=== PATIENT | male | born 2000 | race Caucasian/White ===

== ENCOUNTER 2021-07-25 16:27 | Emergency (ER) | payer OTHER ==
[~2021-07-25] VITALS: Ht 188 cm; Wt 81.6 kg
[2021-07-25] MEDS ORDERED: FLUORESCEIN SODIUM 1 MG STRIP OP ONE (17:15)
[2021-07-25] MEDS ORDERED: PROPARACAINE 0.5% OPHT DROP 15 ML BOTTLE OP ONE (17:15)
--- NOTE | 2021-07-25 17:21 | NUR ---
20 yrs male waking in from home c/o pain and redness on lt eye got hait by lyndsey acckushintmarika eye examin done by DR. HORTA
[2021-07-25] MEDS ORDERED: PROPARACAINE 0.5% OPHT DROP 15 ML BOTTLE ONE (17:33)
[2021-07-25] MEDS ORDERED: FLUORESCEIN SODIUM 1 MG STRIP ONE (17:35)
--- NOTE | 2021-07-25 19:03 | NUR ---
Patient discharged to home in stable condition. Written and verbal after care instructions given. Patient verbalizes understanding of instructions. Stressed follow up or return to ER for worsening s/s.
== END 2021-07-25 19:03 | disposition home or self-care (01) ==
LOC: ER 16:33
DX: S05.12XA Contusion of eyeball and orbital tissues, left eye, initial encounter (principal); H20.042 Secondary noninfectious iridocyclitis, left eye; S02.2XXA Fracture of nasal bones, initial encounter for closed fracture; W21.02XA Struck by soccer ball, initial encounter; Y93.66 Activity, soccer; Y92.89 Other specified places as the place of occurrence of the external cause
CPT/HCPCS: 70486; A4663